=== PATIENT | female | born 1980 | race Caucasian/White ===

== ENCOUNTER → 2019-07-15 | Outpatient (CLI) | payer OTHER | LOC: OD 10:16 | PROVIDERS: ATTEND Otolaryngology | DX: J30.9 Allergic rhinitis, unspecified (principal) | CPT/HCPCS: 36415; 82785; 86003 ==

== ENCOUNTER 2019-08-02 11:40 | Emergency (ER) | payer OTHER ==
--- NOTE | 2019-08-02 12:07 | ER Document Report ---
HPI - HPI Quality of pain: No pain Context: Patient states that she attempted to go to an ENT appointment for follow-up after having nasal polyps removed. Patient states that when she presented to the office they screened her for possible COVID. Patient states that she had traveled earlier this month to [place] as she has a house there. Patient states they refused to see her and insisted that she come to the hospital to be screened. Patient denies any complaints. Patient denies any symptoms concerning for the coronavirus. Patient denies any recent known exposures. Associated Symptoms: None Exacerbated by: Denies Relieved by: Denies - ROS ROS below otherwise negative: Yes Systems Reviewed and Negative: Yes All other systems reviewed and negative - CONSTITUTIONAL Constitutional: DENIES: Fever, Chills - EENT EENT: DENIES: Sore Throat, Congestion - NEURO Neurology: DENIES: Headache - CARDIOVASCULAR Cardiovascular: DENIES: Chest pain - RESPIRATORY Respiratory: DENIES: Coughing - GASTROINTESTINAL Gastrointestinal: DENIES: Nausea - REPRODUCTIVE Reproductive: DENIES: : - DERM Skin Color: Normal Skin Problems: None Past Medical History - General Information source: Patient - Social History Smoking Status: Never Smoker Frequency of alcohol use: Occasional Drug Abuse: None Lives with: Family Family History: Other - Father has history of esophageal strictures Neurological Medical History: Reports: Hx Migraine. Denies: Hx Seizures Surgical Hx: Negative Past Surgical History: Denies: Hx Hysterectomy Vertical Provider Document - CONSTITUTIONAL Exam Limitations: No Limitations General Appearance: WD/WN, No Apparent Distress Notes: Heart rate 80, respiratory rate 16 - INFECTION CONTROL TRAVEL OUTSIDE OF THE [place] IN LAST 30 DAYS: No - HEENT HEENT: Atraumatic, Normal ENT Exam, Normocephalic - NECK Neck: Normal Inspection, Supple. negative: Lymphadenopathy-Left, Lymphadenopa thy-Right - RESPIRATORY Respiratory: Breath Sounds Normal, No Respiratory Distress - CARDIOVASCULAR Cardiovascular: Regular Rate, Regular Rhythm - MUSCULOSKELETAL/EXTREMETIES Musculoskeletal/Extremeties: MAEW - NEURO Level of Consciousness: Awake, Alert, Appropriate Motor/Sensory: No Motor Deficit - DERM Integumentary: Warm, Dry Course - Re-evaluation Re-evalutation: 08/02/19 Offered patient coronavirus screening at this time, patient declined stating that she has plans to travel again to [place] next week. Patient encouraged to speak with the brokerage office manager at her ENT doctors office to discuss plan for follow-up given patient's intended travel plans. Discharge - Discharge Clinical Impression: Normal exam Condition: Stable Disposition: HOME, SELF-CARE Additional Instructions: Follow-up with your manager operations research office to determine what the requirements are prior to your follow-up visit. If you do decide that you would like to have COVID-19 testing, follow-up with the [facility] hotline phone number that you were provided Referrals: ARACELI AMOS MD [Primary Care Provider] - Follow up as needed
== END 2019-08-02 12:24 | disposition home or self-care (01) ==
LOC: ER 11:40
DX: Z71.1 Person with feared health complaint in whom no diagnosis is made (principal)
CPT/HCPCS: 99282

== ENCOUNTER → 2019-08-03 | Outpatient (CLI) | payer OTHER ==
--- NOTE | 2019-08-04 09:53 | RADIOLOGY REPORT (SQ) ---
EXAM DESCRIPTION: CT SINUSES FOR ENT IMAGES COMPLETED DATE/TIME: 08/03/2019 3:16 pm REASON FOR STUDY: J33.9 NASAL POLYP, UNSPECIFIED J33.9 NASAL POLYP, UNSPECIFIED COMPARISON: None. TECHNIQUE: Noncontrast scanning through the paranasal sinuses using bone algorithm. Reconstructed MPR images reviewed. All images stored on PACS. All CT scanners at this facility use dose modulation, iterative reconstruction, and/or weight based d osing when appropriate to reduce radiation dose to as low as reasonably achievable (ALARA). [facility]: Dose Right [facility]: CareDose [facility]: Dose Right [facility]: Teradose 4D [facility]: [place] RADIATION DOSE: 46mGy. LIMITATIONS: None. FINDINGS: Right sinuses and drainage pathways: Post-surgical changes: None. Frontal sinus: Normal. Frontoethmoidal Recess: Normal. Anterior Ethmoid Sinuses: Normal. Posterior Ethmoid Sinuses: Opacified with mucous membrane thickening and fluid Sphenoid Sinus: Mucous membrane thickening and fluid Sphenoethmoidal Recess: Opacified on axial images 92-99 Maxillary Sinus: Circumferential mucous membrane thickening with mucous or serous retention cysts Ostiomeatal Complex: Opacified with mucous membrane thickening coronal image 69 Left Sinuses and Drainage Pathways: Post-Surgical Changes: None. Frontal Sinus: Normal. Frontoethmoidal Recess: Normal. Anterior Ethmoid Sinuses: Normal. Posterior Ethmoid Sinuses: Opacified with mucous membrane thickening and fluid Sphenoid Sinus: opacified with mucous membrane thickening and fluid Sphenoethmoidal Recess: Opacified with mucous membrane thickening Maxillary Sinus: Circumferential mucous membrane thickening Ostiomeatal Complex: Narrowed by mucous membrane thickening on coronal images 70-73 Right Olfactory Fossa: No polyps. Left Olfactory Fossa: No polyps. Middle Turbinate Juanita Bullosa: No. Paradoxical Middle Turbinate: On the right Atelectatic Uncinated Process: No. Frontal Sia Cell Type I: left Frontal Sia Cell Type II: left Interfrontal Sinus Septal Cell: None. Supra-Orbital Ethmoid: None. Frontal Bullar Cell: None. Suprabullar Bullar Cell: None. Sphenoethmoidal ([place]) Cell: None. Pneumatization of the Anterior Clinoid Processes: no Hypoplastic Maxillary Sinus: None. Osteoneogenesis: None. Bone Dehiscence:None. Nasal Cavity: Normal. Nasal Septum: Rightward nasal septal deviation Bilateral mastoid air cells and middle ear cavities are clear Anatomic Variants: Right V[place] Canal: Normal. Left V[place] Canal: Normal. IMPRESSION: Diffuse inflammatory changes TECHNICAL DOCUMENTATION: JOB ID: [id number] Quality ID # [id number]: Final reports with documentation of one or more dose reduction techniques (e.g., Au tomated exposure control, adjustment of the mA and/or kV according to patient size, use of iterative reconstruction technique) 2010 [employer]- All Rights Reserved Reading location - IP/workstation name: [id number]
== END ==
LOC: RAD 15:01
PROVIDERS: ATTEND Otolaryngology
DX: J33.9 Nasal polyp, unspecified (principal)
CPT/HCPCS: 70486